=== PATIENT | male | born 1990 | race Caucasian/White ===

== ENCOUNTER 2024-11-21 17:56 | Emergency (ER) | payer BC ==
[~2024-11-21] VITALS: Ht 177.8 cm; Wt 107.3 kg
[2024-11-21 18:06] VITALS: BP 180/131; PULSE 119; RESP 18; O2SAT 98
--- NOTE | 2024-11-21 18:17 | Physician Documentation ---
History of Present Illness ~ General Chief Complaint: Abnormal Lab(s) Stated Complaint: LAB WORK History of Present Illness Initial Comments Patient is a 34-year-old male that presents to the emergency department for evaluation of abnormal laboratory findings that were obtained at [facility] urgent care yesterday. Patient reports he presented there for nausea vomiting abdominal pain. Lab work was done patient did not wait for the results. Urgent care called him today so he has elevated liver enzymes elevated white blood cell count elevated alkaline phosphatase. Patient reports that his nausea and vomiting is better currently but that he was told to report to the emergency department. Medication Reconciliation Allergies: Coded Allergies: No Known Allergies (Unverified , 11/21/24) Review of Systems ROS As stated above in the HPI, otherwise all systems are reviewed and negative. Physical Exam Physical Exam Vital Signs: Temperature: 98.8, Source: Oral, Heart Rate: 119, Respiratory Rate: 18, BP: 180/131, Pulse Oximetry: 98, Weight: 107.270 Oxygen Flow Rate: 0 Physical Exam VITALS: Reviewed and as above. GENERAL: Alert, no apparent distress. HEENT: Normocephalic, atraumatic, PERRL, EOMI, dry mucosa, no erythema RESPIRATORY: Lungs clear, normal breath sounds, no respiratory distress. CHEST: No accessory muscle use, no retractions CV: Regular rate, rhythm, no edema, no murmur, No: JVD GI: Soft, non-tender, bowels sounds present, no rebound, guarding, or rigidity BACK: No CVA tenderness, or swelling MUSCULOSKELETAL No deformities, no edema SKIN: Warm and dry, no rash NEURO: Oriented x4, No motor or sensory deficit PSYCH: Normal mood and affect, no agitation Progress Results/Orders Results/Orders Completed Orders - GREYSON CARLTON P[employer]ENGER ATTENDANT Cbc/Diff (11/21/24 18:15) Amylase (11/21/24 18:15) Lipase (11/21/24 18:15) CMP (11/21/24 18:15) Vital Signs 11/21/24 18:06 Temp 98.8 Pulse 119 Resp 18 B/P (MAP) 180/131 Pulse Ox 98 O2 Flow Rate 0 Laboratory Tests Test 11/21/24 18:29 White Blood Count 9.9 Red Blood Count 5.97 Hemoglobin 16.9 Hematocrit 48.6 Mean Corpuscular Volume 81.4 Mean Corpuscular Hemoglobin 28.4 Mean Corpuscular Hemoglobin Concent 34.9 Red Cell Distribution Width 13.0 Platelet Count 264 Mean Platelet Volume 9.2 Neutrophils (%) (Auto) 65.3 Lymphocytes (%) (Auto) 21.4 Monocytes (%) (Auto) 10.7 Eosinophils (%) (Auto) 1.9 Basophils (%) (Auto) 0.7 Neutrophils # (Auto) 6.5 Lymphocytes # (Auto) 2.1 Monocytes # (Auto) 1.1 H Eosinophils # (Auto) 0.2 Basophils # (Auto) 0.1 CBC Comment Sodium Level 138 Potassium Level 3.4 L Chloride Level 100 Carbon Dioxide Level 27.0 Anion Gap 11 Blood Urea Nitrogen 14 Creatinine 1.07 Estimated GFR/1.73 m2 79 BUN/Creatinine Ratio 13.1 Glucose Level 139 H Calcium Level 9.3 Total Bilirubin 1.4 H Aspartate Amino Transf (AST/SGOT) 70 H Alanine Aminotransferase (ALT/SGPT) 234 H Alkaline Phosphatase 160 H Total Protein 8.1 Albumin 4.2 Globulin 3.9 Albumin/Globulin Ratio 1.1 Amylase Level 21 L Lipase 25 Chemistry Comments Medical Decision Making Findings Patient is sent over from urgent care for re-evaluation of abnormal labs drawn yesterday at the clinic. Patient's labs are nonemergent resolving from yesterday's labs white blood cell count has reduced and normalized AST ALT numbers have reduced alkaline phosphatase has reduced. Patient reports that his nausea and vomiting have greatly improved no fevers chills diarrhea or any other concerning symptoms at this time. Patient reports that he feels much better than he did yesterday. Departure Disposition: 01 HOME / SELF CARE / HOMELESS Impression: Primary Impression: Abnormal laboratory test result Additional Impressions: General medical exam Gastroenteritis Viral gastroenteritis Discharge Instructions: Viral Gastroenteritis, Adult Additional Instructions: Patient is sent over from urgent care for re-evaluation of abnormal labs drawn yesterday at the clinic. Patient's labs are nonemergent resolving from yesterday's labs white blood cell count has reduced and normalized AST ALT numbers have reduced alkaline phosphatase has reduced. Patient reports that his nausea and vomiting have greatly improved no fevers chills diarrhea or any other concerning symptoms at this time. Patient reports that he feels much better than he did yesterday. Please follow up with her primary care provider if you have any additional concerns. Please return to the emergency department if you have any worsening of your symptoms from yesterday or any other additional concerning symptoms that we discussed here today. Please increase your fluid intake as tolerated. Please continue to take the medications that were prescribed to yesterday and follow up with the urgent care you have any questions regarding those medications. Referrals: NO PRIMARY CARE PROVIDER (PCP) Education Educated: Patient Educated regarding: diagnosis, treatment, need for follow up Signature Scribe Signature: A Attestation: Scribed for Emergency,Department by FLORINA Clark . 11/21/24 19:51 GREYSON CARLTON Nov 21, 2024 18:17
[2024-11-21 18:46] LABS: MEAN PLATELET VOLUME 9.2 FL (7.4-10.4); RED CELL DISTRIBUTION WIDTH 13.0 % (11.5-14.5)
[2024-11-21 18:58] LABS: CREATININE 1.07 MG/DL (0.60-1.10); TOTAL CARBON DIOXIDE 27.0 MMOL/L (24-32); eCRCL 99 ML/MIN; eGFR 79 ML/MIN
[2024-11-21 20:29] VITALS: TEMP 98.8
== END 2024-11-21 20:31 | disposition home or self-care (01) ==
LOC: ER 17:57
DX: Z00.01 Encounter for general adult medical examination with abnormal findings (principal); K52.9 Noninfective gastroenteritis and colitis, unspecified; A08.4 Viral intestinal infection, unspecified
CPT/HCPCS: 36415; 80053; 82150; 83690; 85025; 99283